=== PATIENT | female | born 1995 | race Caucasian/White ===

== ENCOUNTER 2017-11-23 12:46 | Emergency (ER) | payer OTHER ==
--- NOTE | 2017-11-23 12:52 | PDOC ---
History of Present Illness - General Chief Complaint: Pain, Acute Stated Complaint: LEFT KNEE PAIN Time Seen by Provider: 11/23/17 12:51 Past History - Past Medical History Allergies/Adverse Reactions: Allergies Allergy/AdvReac Type Severity Reaction Status Date / Time No Known Allergies Allergy Verified 11/23/17 12:47 Home Medications: Ambulatory Orders Control 11/23/17 Ibuprofen 600 mg PO TID PRN #90 tablet 11/23/17 COPD: No - Suicide/Smoking/Psychosocial Hx Smoking History: Never smoked Hx Alcohol Use: No Drug/Substance Use Hx: No Substance Use Type: None *Physical Exam - Vital Signs Last Vital Signs Temp Pulse Resp BP Pulse Ox 98.3 F 72 18 136/80 100 11/23/17 12:47 11/23/17 12:47 11/23/17 12:47 11/23/17 12:47 11/23/17 12:47 ED Treatment Course - RADIOLOGY Radiology Studies Ordered: 4 view x-ray of L knee (including sunrise). 11/23/17 18:45 Radiograph Interpretation: No acute fracture in L knee, no patellar dislocation, no sizeable effusion. 11/23/17 18:45 Medical Decision Making - Medical Decision Making Pt knee x-ray negative for fractures. will follow-up in clinic with Dr. Keen in orthopedic clinic for follow-up. Provided knee immobilizer and pt can bear weight as tolerated. Provided 600 mg ibuprofen for pain control. Discussed use of pain control (ibuprofen, tylenol) at home, as well as rest and ice. 11/23/17 14:17 (Entered later). Pt pain improved after ibuprofen. Knee x-ray negative for sizable effusion, patellar dislocation, or fracture. Pt will follow-up in orthopedic clinic (Dr. Keen) and PCP. Verbal and written follow-up precautions provided to pt for worsening pain, swelling, fevers/chills, cyanosis , or other concerns. 11/23/17 18:45 *DC/Admit/Observation/Transfer Diagnosis at time of Disposition: Knee pain, left Qualifiers: Chronicity: acute Qualified Code(s): M25.562 - Pain in left knee Left knee injury Qualifiers: Encounter type: initial encounter Qualified Code(s): S89.92XA - Unspecified injury of left lower leg, initial encounter - Discharge Dispostion Disposition: HOME Condition at time of disposition: Improved Decision to Admit order: No - Prescriptions Prescriptions: Ibuprofen 600 mg PO TID PRN #90 tablet PRN Reason: Pain - Referrals Referrals: Praneeth Keen MD [Staff Physician] - - Patient Instructions Printed Discharge Instructions: Meniscal Tear, Knee Sprain Additional Instructions: you can wear knee immobilizer until follow Up with orthopedics. He can follow- up with orthopedist Dr. Keen please see referral information for phone number to call and schedule ice the knee an elevated to reduce pain and swelling for the next 24 hours use crutches as needed he can take ibuprofen 600 mg every 8 hours as needed for pain - Post Discharge Activity
--- NOTE | 2017-11-23 13:06 | PDOC ---
Attending Attestation - Resident Resident Name: MaribellPaola - ED Attending Attestation I have performed the following: I have examined & evaluated the patient, The case was reviewed & discussed with the resident, I agree w/resident's findings & plan, Exceptions are as noted - HPI HPI: 11/23/17 13:17 22-year-old female here today complaining of 4 days of left knee pain following an injury while working out. Patient states she was doing [employer] and when she went to jump on her left knee she felt pain on the medial side has had persistent pain ever since pain is worse with bending and extension as well as bearing weight some mild swelling no ecchymosis no hip or ankle pain has been ambulating with a limp - Physicial Exam PE: 11/23/17 13:18 Awake alert no acute distress lungs are clear bilaterally heart is regular without any murmurs rubs or gallops left knee is with medial palpable tenderness full range of motion and no laxity on anterior posterior drawer no appreciated effusion ankle and hip is nontender full range of motion no patella laxity 2+ DP PT pulses skin is warm dry and intact - Medical Decision Making 11/23/17 13:18 Differential includes medial meniscus injury ligamentous injury will obtain x- ray to rule out any tibial plateau injury or bony fracture. Treat pain with Motrin if x-rays are negative will likely DC with a knee immobilizer and crutches as needed follow-up with Dr. Keen orthopedics ice elevation and Motrin for pain control
[2017-11-23 13:11] VITALS: BP 136/80; PULSE 72; TEMP 98.3; BMI 21.1
[2017-11-23] MEDS ORDERED: IBUPROFEN 600 MG TABLET (FP) PO ONE ×2 (13:11→13:23)
== END 2017-11-23 14:29 | disposition home or self-care (01) ==
LOC: FER 12:46
PROC: 2W3RX1Z Immobilization of Left Lower Leg using Splint (ICD-10-PCS; principal; 2017-11-23)
DX: S89.92XA Unspecified injury of left lower leg, initial encounter (principal); X58.XXXA Exposure to other specified factors, initial encounter; Y93.89 Activity, other specified; Y92.9 Unspecified place or not applicable
CPT/HCPCS: 73564-TC-LT-FY; 84703; 99282-25

== ENCOUNTER 2019-05-14 16:06 | Emergency (ER) | payer OTHER ==
[2019-05-14] MEDS ORDERED: ACETAMINOPHEN 325 MG TABLET (FP) PO ONE (16:31)
[2019-05-14] MEDS ORDERED: ONDANSETRON *ODT* 4 MG TABLET SL ONE (16:31)
[2019-05-14] MEDS ORDERED: ACETAMINOPHEN 325 MG TABLET (FP) ONE (16:36)
--- NOTE | 2019-05-14 16:36 | PDOC ---
History of Present Illness - General Chief Complaint: Respiratory Stated Complaint: FEVER History Source: Patient Exam Limitations: No Limitations - History of Present Illness Initial Comments: 05/14/19 16:32 23 yo F with positive flu exposure of boyfriend, here with c/o fever x 5 - 7 days, cough and sore throat, feels neck and deep back pain, myalgia. no vomting. no urinary complaints. feels tired. was tested for flu at urgent care tested negative. and had negative strept test in last few days. no rash. no travel. no other complaints did not get a flu shot. Past History - Past Medical History Allergies/Adverse Reactions: Allergies Allergy/AdvReac Type Severity Reaction Status Date / Time No Known Allergies Allergy Verified 05/14/19 16:10 Home Medications: Ambulatory Orders Control 11/23/17 Azithromycin [Zithromax 250mg Tablets -] 250 mg PO UTDICT #6 tab 05/14/19 COPD: No - Psycho Social/Smoking Cessation Hx Smoking History: Never smoked Hx Alcohol Use: No Drug/Substance Use Hx: No Substance Use Type: None Review of Systems - Review of Systems Able to Perform ROS?: Yes Constitutional: Yes: Chills, Fever HEENTM: Yes: Nose Congestion, Throat Pain. No: Eye Pain, Blurred Vision Respiratory: Yes: Cough Cardiac (ROS): No: Chest Pain, Edema : No: Burning, Dysuria, Discharge Musculoskeletal: Yes: Back Pain Integumentary: Yes: Other. No: Bruising, Change in Color Hematologic/Lymphatic: No: Anemia, Blood Clots, Easy Bleeding All Other Systems: Reviewed and Negative *Physical Exam - Physical Exam 05/14/19 16:33 awake alert throat no exudate. mild erythema. post pharynx cobblestoning. lungs clear bilat heart rrr no mrg abd soft nnd. mild epigastric ttp. all else nt. no cva tednerness. alert oriented x 3. no menigmus, skin no rash. Medical Decision Making - Medical Decision Making 05/14/19 16:34 23 yo F with viral uri, likley influenzae, despite negative test. plan tylenol ua ucg. cxr r/ol pna, zofran. likely dc home. 05/14/19 17:48 cxr wtih questionalbe opacification left base. will treat with azithromycin x 5 days. dc home. work note given. informed to drink plenty of liquids, large ketones in urine. ucg negative. Discharge - Discharge Information Problems reviewed: Yes Clinical Impression/Diagnosis: Viral URI, Bronchitis Condition: Good Disposition: HOME - Admission No - Additional Discharge Information Prescriptions: Azithromycin [Zithromax 250mg Tablets -] 250 mg PO UTDICT #6 tab - Follow up/Referral Referrals: Kimberley Markham MD [Primary Care Provider] - - Patient Discharge Instructions Patient Printed Discharge Instructions: Influenza, Common Cold Additional Instructions: you likely have the flu, or another similar respiratory virus. treatment is time , lots of rest and plenty of fluids. you can use over the counter motrin 600 mg every 8 hrs as needed for pain. take tylenol 500 mg every 6 hrs as needed for pain or fever. your chest xray is negative. for pneumonia. no work until without a fever fo 24 hours. return for any persistant vomiting, shortness of breath or any concerns. you can take azithromycin as prescribed 500 mg on day one, followed by 250 mg daily x 5 days. - Post Discharge Activity Work/Back to School Note: Back to Work
[2019-05-14] MEDS ORDERED: ONDANSETRON *ODT* 4 MG TABLET ONE (16:37)
[2019-05-14 16:39] VITALS: BP 112/73; PULSE 87; TEMP 100.5; BMI 20.3
[2019-05-14 18:30] LABS: EPITHELIAL CELLS FEW /hpf
== END 2019-05-14 18:03 | disposition home or self-care (01) ==
LOC: FER 16:06
DX: J40 Bronchitis, not specified as acute or chronic (principal); J06.9 Acute upper respiratory infection, unspecified; B97.89 Other viral agents as the cause of diseases classified elsewhere
CPT/HCPCS: 71046-TC-FY; 81003; 81015; 84703; 99281-25; Q0162